=== PATIENT | female | born 1950 ===

== ENCOUNTER → 2016-12-07 | Outpatient (CLI) | payer MEDICARE ==
[~2016-12-07] VITALS: Ht 142.2 cm; Wt 58.1 kg
[~2016-12-07] MED LIST: ASPIRIN EC81 MG ORAL
[2016-12-07 09:53] VITALS: BP 159/89
--- NOTE | 2016-12-07 19:19 | Consultation ---
DATE OF CONSULTATION: 12/07/2016 CONSULTING PHYSICIAN: Mike Guillen M.D. REFERRING PHYSICIAN: Marion Duarte M.D. CHIEF COMPLAINT: History of GIST. 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 The patient was referred to us by Oncology for evaluation of endoscopy to see if the tumor completely resected for the EUS and also for colonoscopy because the patient never had colonoscopy before. PAST MEDICAL HISTORY: 1. GERD. 2. Hypertension. 3. 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 4. History of ovarian polycystic disease, status post hysterectomy and oophorectomy. ALLERGIES: No known drug allergies. MEDICATIONS: Please see medication reconciliation list. SOCIAL HISTORY: The patient denies any tobacco, alcohol, or drug abuse. FAMILY HISTORY: Noncontributory. REVIEW OF SYSTEMS: A 10-point review of systems was performed and pertinent positives dictated in history of present illness. PHYSICAL EXAMINATION: VITAL SIGNS: Temperature 98.2, pulse rate is 60, respirations 20, and blood pressure is 159/87. HEENT: Normocephalic and atraumatic. Sclerae anicteric. NECK: Supple. No evidence of lymphadenopathy. CARDIOVASCULAR: Regular rate and rhythm. Plus S1 and S2. LUNGS: Clear to auscultation bilaterally. ABDOMEN: Positive bowel sounds. Soft and nontender. There is a scar in the midline from prior abdominal surgeries. No rebound. No guarding. No peritoneal sign. EXTREMITIES: No cyanosis, no clubbing, no edema. LABORATORY DATA: Not available. ASSESSMENT AND PLAN: This is a very pleasant 66-year-old female, who had a history of gastrointestinal stromal tumors, has been evaluated by oncologist for Gleevec treatment. She never had a screening colonoscopy evaluation. So, plan is to schedule the patient for screening colonoscopy, EGD for chronic acid reflux disease, and post gastric surgery for GIST, and also EUS to confirm the complete eradication of the GIST before treatment. I want to thank Dr. Marion Duarte for this kind referral. Mike Martita Guillen DR: EVETTE JOB#: [id number] CC: Marion Duarte M.D.; Fax#: [phone]
== END | disposition home or self-care (01) ==
LOC: PAN 09:19
DX: K21.9 Gastro-esophageal reflux disease without esophagitis (principal); I10 Essential (primary) hypertension; Z90.710 Acquired absence of both cervix and uterus; Z90.721 Acquired absence of ovaries, unilateral
CPT/HCPCS: 99201

== ENCOUNTER → 2016-12-15 | Day surgery (SDC) | payer MEDICARE, OTHER ==
[2016-12-15] VITALS (9 sets, daily range): BP systolic 132–169; BP diastolic 73–87
[~2016-12-15] VITALS: Ht 144.8 cm; Wt 59.0 kg
[~2016-12-15] MED LIST changes: +LR 1000ml ONE; +Lidocaine 1% MPF 10mg/ml 5ml ONE; +Propofol 10mg/ml 20ml IV ONE
--- NOTE | 2016-12-15 11:57 | Short Stay Surgery H&P ---
History of Present Illness History of Present Illness Chief Complaint see recent dictation HPI Kat Valadez is a 66 year old female who was admitted on for GERD Patient History Allergies: Coded Allergies: No Known Allergies (Unverified , 12/07/16) PAST MEDICAL HISTORY: Past Surgeries: Social History: Medication History Scheduled Aspirin Ec* (Aspirin Ec*), 81 MG ORAL DAILY, (Reported) Physical Exam Vital Signs Last Vital Signs Date Time Temp Pulse Resp B/P Pulse Ox O2 Delivery O2 Flow Rate FiO2 12/15/16 11:17 97.3 60 20 149/85 99 Room Air Plan Attestation Are the patient's medical conditions optimized for surgery? ANGELA THORPE Dec 15, 2016 11:57
--- NOTE | 2016-12-15 11:58 | Pre-Procedure Note/Attestation ---
Pre-Procedure Note/Attestation Complete Prior to Procedure Planned Procedure: not applicable Procedure Narrative: egd/eus/colonoscopy Indications for Procedure Pre-Operative Diagnosis: screening colon, GERD, h/o GIST Attestation I attest that I discussed the nature of the procedure; its benefits; risks and complications; and alternatives (and the risks and benefits of such alternatives ), prior to the procedure, with the patient (or the patient's legal business services sales representative). I attest that, if there was a reasonable possibility of needing a blood transfusion, the patient (or the patient's legal business services sales representative) was given the [facility] standardized written summary, pursuant to the Darryn Carson Blood Safety Act ([place] Health and Safety Code # 1645, as amended). I attest that I re-evaluated the patient just prior to the surgery and that there has been no change in the patient's H&P, except as documented below: ANGELA THORPE Dec 15, 2016 11:57
--- NOTE | 2016-12-15 12:21 | Anethesia Preoperative Eval ---
Anesthesia Pre-op PMH/ROS General Date of Evaluation: Dec 15, 2016 Time of Evaluation: 12:18 Anesthesiologist: francisco ASA Score: ASA 2 Mallampati Score Class I : Soft palate, uvula, fauces, pillars visible Class II: Soft palate, uvula, fauces visible Class III: Soft palate, base of uvula visible Class IV: Only hard plate visible Mallampati Classification: Class II Surgeon: laura Diagnosis: gerd Surgical Procedure: EGD/Colonoscopy/EUS Anesthesia History: none Family History: no anesthesia problems Allergies: Coded Allergies: No Known Allergies (Unverified , 12/07/16) Medications: see eMAR Past Medical History Cardiovascular: Reports: HTN Pulmonary: Denies: COPD, EDIN, asthma, other Gastrointestinal/Genitourinary: Reports: GERD Neurologic/Psychiatric: Denies: CVA, TIA, dementia, depression/anxiety, other Endocrine: Denies: DM, hypothyroidism, other, steroids HEENT: Denies: [place] (L), [place] (R), cataract (L), cataract (R), glaucoma, other Hematology/Immune: Denies: DVT, anemia, bleeding disorder, other Musculoskeletal/Integumentary: Denies: DDD, DJD, OA, RA, edema, other Anesthesia Pre-op Phys. Exam Physician Exam Last Vital Signs Date Time Temp Pulse Resp B/P Pulse Ox O2 Delivery O2 Flow Rate FiO2 12/15/16 11:17 97.3 60 20 149/85 99 Room Air Constitutional: NAD Neurologic: CN 2-12 intact Cardiovascular: RRR Respiratory: CTA Gastrointestinal: S/NT/ND Airway Exam Mallampati Classification 2 Mallampati Score: Class II MO: full ROM: full Dentures: no lower, no upper Anesthesia Pre-op A/P Studies Pre-op Studies: EKG - sr Risk Assessment & Plan Plan: mac Status Change Before Surgery: No Pre-Antibiotics Drug: none DOMINICK STEARNS CRNA Dec 15, 2016 12:20
--- NOTE | 2016-12-15 12:58 | Immediate Post-Op Evaluation ---
Immediate Post-Op Evalulation Immediate Post-Op Evalulation Procedure: EGD/Colonoscopy/EUS Date of Evaluation: Dec 15, 2016 Time of Evaluation: 12:50 IV Fluids: 500 Blood Pressure Systolic: 134 Blood Pressure Diastolic: 73 Pulse Rate: 56 Respiratory Rate: 15 O2 Sat by Pulse Oximetry: 100 Temperature (Fahrenheit): 97.7 Nausea: No Vomiting: No Complications none Patient Status: awake, reacts, patent Hydration Status: adequate Drug: none DOMINICK STEARNS CRNA Dec 15, 2016 12:58
--- NOTE | 2016-12-15 13:01 | 48 Hour Post Anesthesia Eval ---
Post Anesthesia Evaluation Procedure: EGD/Colonoscopy/EUS Date of Evaluation: Dec 15, 2016 Time of Evaluation: 13:00 Blood Pressure Systolic: 135 0: 73 Pulse Rate: 54 Respiratory Rate: 14 Temperature (Fahrenheit): 97.0 O2 Sat by Pulse Oximetry: 100 Airway: patent Nausea: No Vomiting: No Hydration Status: adequate Mental Status/LOC: patient returned to baseline Post-Anesthesia Complications: none Follow-up care needed: N/A DOMINICK STEARNS CRNA Dec 15, 2016 13:01
--- NOTE | 2016-12-16 20:26 | Cardiology Report ---
APPROVED REPORT EKG Measurement Heart [id number] Normal sinus rhythm Normal ECG
--- NOTE | 2016-12-17 09:38 | Endoscopy Procedure Note ---
Endoscopy Procedure Note Indication for Procedure: h/o GIST, screening colon Procedures Performed: EGD, colonoscopy Operative Findings/Diagnosis: gastritis, colon polyp Specimen: yes Pt Tolerated Procedure Well: Yes Estimated Blood Loss: none Anesthesiologist: jacqueline Anesthesia: MAC Implant(s) used?: No 50 yrs or older w/o bx or poly: No 10yrs. F/U not recommended: Yes If not recommended, why?: Above average risk 10 yrs. F/U needed: Yes 18 years or older w/prev. colo: No ANGELA THORPE Dec 17, 2016 09:38
--- NOTE | 2016-12-30 23:17 | Procedure Note ---
DATE OF PROCEDURE: 12/15/2016 SURGEON: Mike Guillen M.D. PROCEDURE: 1. Upper endoscopy with biopsy. 2. Endoscopic ultrasound. 3. Colonoscopy with biopsy. ANESTHESIOLOGIST: Jeevan Francois M.D. INSTRUMENT: Olympus adult flexible upper endoscope, EUS scope, and colonoscope. INDICATION: History of GIST, gastritis, history of heartburn, and screening colonoscopy evaluation. REASON FOR PROCEDURE: The procedure, risks, benefits, and possible consequences, including hemorrhage, aspiration, perforation and infection, and alternative treatments, were explained to the patient/legal guardian by Dr. Mike Guillen and the patient/legal guardian understood and accepted these risks. DESCRIPTION OF PROCEDURE: After informed consent was obtained and the patient was adequately sedated, first Olympus upper endoscope was advanced from mouth into the second portion of duodenum and retroflexion was performed in the stomach. The patient had evidence of gastritis. Random biopsy from antrum was obtained to rule out H. pylori infection. At this time, the upper endoscope was retrieved and the EUS scope was introduced. Stomach was scant to look for any evidence of retained GIST, but there is no obvious GIST seen in this examination. The rest of the EUS examination was also grossly within normal limits. At this time, the EUS scope was retrieved and the patient was turned over for colonoscopy. First, a rectal exam was performed, which was normal. Then, the scope was advanced from the rectum into the cecum documented by appendiceal orifice, ileocecal valve, and right upper quadrant palpation. Quality of prep was very good. The patient has evidence of scattered diverticulosis without any acute diverticulitis. There was one diminutive polyp in the rectosigmoid area, which was removed with cold biopsy forceps technique. Retroflexion of rectum showed evidence of internal hemorrhoids. SUMMARY OF FINDINGS: 1. Gastritis, status post biopsy. 2. Internal hemorrhoids. 3. One colonic polyp removed, see above for details. 4. Normal endoscopic ultrasound examination and noted no recurrent gastrointestinal stromal tumors. RECOMMENDATIONS: Follow up biopsy results and treat accordingly. I want to thank, Dr. Marion Duarte, for this kind referral. Mike Guillen M.D. DR: MIRLANDE JOB#: [id number] CC: Marion Duarte M.D.
== END | disposition home or self-care (01) ==
LOC: GAS 10:36
DX: Z12.11 Encounter for screening for malignant neoplasm of colon (principal); D12.7 Benign neoplasm of rectosigmoid junction; K64.8 Other hemorrhoids; K29.50 Unspecified chronic gastritis without bleeding; K21.9 Gastro-esophageal reflux disease without esophagitis; Z87.19 Personal history of other diseases of the digestive system; I10 Essential (primary) hypertension; Z79.82 Long term (current) use of aspirin
CPT/HCPCS: 43239; 43259; 45380; 93005; J2704; J7120; 94003; 94150